=== PATIENT | female | born 1990 | race American Indian/Alaskan Native ===

== ENCOUNTER 2017-11-02 21:14 | Emergency (ER) | payer OTHER ==
[2017-11-02 21:34] VITALS: O2SAT 100
--- NOTE | 2017-11-02 21:36 | ED PDOC ---
Arrival/HPI - General Time Seen by Provider: 11/02/17 21:24 Historian: Patient - History of Present Illness Narrative History of Present Illness (Text): 11/02/17 21:36 Gloria Jaimes is a 27 year old female, with no significant past medical history, who presents to the Emergency department complaining of cold-like symptoms. Patient states she has been frontal sinus pressure with associated congestion, rhinorrhea, dry cough, and body aches for the past couple of days. Patient notes she had a fever with max temperature of 101 at home today. Patient reports she took over the counter Tylenol Cold and Flu medication with minimal relief. Patient denies any shortness of breath, chest pain, abdominal pain, nausea, vomiting, diarrhea, dizziness, or any other complaints. Time/Duration: Other (couple days) Symptom Onset: Gradual Symptom Course: Unchanged Quality: Pressure Activities at Onset: Light Context: Home Past Medical History - Provider Review Nursing Documentation Reviewed: Yes Family/Social History - Physician Review Nursing Documentation Reviewed: Yes Family/Social History: Unknown Family HX Allergies/Home Meds Allergies/Adverse Reactions: Allergies No Known Allergies Allergy (Unverified 11/02/17 21:41) Review of Systems - Physician Review All systems were reviewed & negative as marked: Yes - Review of Systems Constitutional: Fevers Eyes: Normal ENT: Rhinorrhea, Sinus Congestion Respiratory: Cough. absent: SOB Cardiovascular: Normal. absent: Chest Pain Gastrointestinal: Normal. absent: Abdominal Pain, Diarrhea, Nausea, Vomiting Genitourinary Female: Normal. absent: Dysuria, Frequency, Hematuria, Urine Output Changes Musculoskeletal: Normal. absent: Back Pain, Neck Pain Skin: Normal. absent: Rash Neurological: Headache. absent: Dizziness Endocrine: Normal Hemo/Lymphatic: Normal Psychiatric: Normal Physical Exam Vital Signs Reviewed: Yes Vital Signs Temp Pulse Resp BP Pulse Ox 11/02/17 21:33 99.5 F 104 H 20 154/102 H 100 Temperature: Afebrile Blood Pressure: Normal Pulse: Regular Respiratory Rate: Normal Appearance: Positive for: Well-Appearing, Non-Toxic, Comfortable Pain Distress: None Mental Status: Positive for: Alert and Oriented X 3 - Systems Exam Head: Present: Normocephalic, Tenderness (Tenderness over frontal sinuses) Pupils: Present: PERRL Extroacular Muscles: Present: EOMI Conjunctiva: Present: Normal Ears: Present: Normal, NORMAL TM, Normal Canal. No: Erythema, TM Bulging, Fluid , TM Perf Mouth: Present: Moist Mucous Membranes Pharnyx: Present: Normal. No: ERYTHEMA, EXUDATE, TONSILS ENLARGED, Peritonsilar Swelling, Uvular Deviation, Muffled/Hoarse Voice, Strider, Soft Palate/Uvular Edema Nose (External): Present: Atraumatic Nose (Internal): Present: Rhinorrhea, Other (Nasal congestion) Neck: Present: Normal Range of Motion. No: Meningeal Signs, MIDLINE TENDERNESS , Paraspinal Tenderness Respiratory/Chest: Present: Clear to Auscultation, Good Air Exchange. No: Respiratory Distress, Accessory Muscle Use Cardiovascular: Present: Regular Rate and Rhythm, Normal S1, S2. No: Murmurs Abdomen: Present: Normal Bowel Sounds. No: Tenderness, Distention, Peritoneal Signs Upper Extremity: Present: Normal Inspection. No: Cyanosis, Edema Lower Extremity: Present: Normal Inspection. No: Edema Neurological: Present: GCS=15, CN II-XII Intact, Speech Normal Skin: Present: Warm, Dry, Normal Color. No: Rashes Psychiatric: Present: Alert, Oriented x 3, Normal Insight, Normal Concentration Medical Decision Making ED Course and Treatment: 11/02/17 21:36 Impression: 27 year old female complaining of frontal sinus pressure, runny nose, dry cough , body aches, and fever. Differential Diagnosis included but are not limited to: sinusitis vs. URI vs. influenza vs. viral syndrome Plan: -- Rapid influenza -- Reassess and disposition Progress Notes: 11/02/17 22:52 Pt positive for influenza A. - Lab Interpretations Lab Results: Lab Results 11/02/17 21:25: Influenza Typ A,B (EIA) Pos for influenza a H I have reviewed the lab results: Yes - Medication Orders Current Medication Orders: Oseltamivir Phosphate (Tamiflu Cap) 75 mg PO ONCE ONE PRN Reason: Protocol Stop: 11/02/17 23:32 - Scribe Statement The provider has reviewed the documentation as recorded by the Scribannmarie Jones All medical record entries made by the Scribe were at my direction and personally dictated by me. I have reviewed the chart and agree that the record accurately reflects my personal performance of the history, physical exam, medical decision making, and the department course for this patient. I have also personally directed, reviewed, and agree with the discharge instructions and disposition. Disposition/Present on Arrival - Present on Arrival Any Indicators Present on Arrival: No - Disposition Have Diagnosis and Disposition been Completed?: Yes Diagnosis: Sinusitis, Influenza Disposition: HOME/ ROUTINE Disposition Time: 23:33 Patient Plan: Discharge Condition: GOOD Discharge Instructions (ExitCare): Sinusitis, Adult (DC), Flu, Adult (DC) Additional Instructions: Take meds as prescribed/drink plenty of liquids/follow up with your doctor this week Prescriptions: Fexofenadine/Pseudoephedrine [Xuan-D 12 Hour Tablet] 1 each PO BID PRN #24 tab.er.12h PRN Reason: Nasal Congestion Amoxicillin/Clavulanate [Augmentin 875 MG-125 MG] 1 tab PO BID #20 tab Oseltamivir [Tamiflu] 75 mg PO BID #10 cap Referrals: Sherif Soriano MD [Primary Care Provider] - Follow up with primary
[2017-11-02] MEDS ORDERED: Amoxicillin-Clav 875-125 mg Tab PO STA (23:32)
[2017-11-02 23:46] VITALS: BP 136/74; PULSE 88; RESP 18; TEMP 98.8
== END 2017-11-02 23:46 | disposition home or self-care (01) ==
LOC: ED 21:14
DX: J11.1 Influenza due to unidentified influenza virus with other respiratory manifestations (principal); J32.9 Chronic sinusitis, unspecified